=== PATIENT | male | born 1950 | race Caucasian/White ===

== ENCOUNTER 2018-01-26 10:01 | Inpatient (IN) | payer MEDICARE, OTHER ==
--- NOTE | 2018-02-08 17:03 | GHP ---
[f rep st] PREOP HISTORY AND PHYSICAL DATE OF ADMISSION: 02/09/2018 CHIEF COMPLAINT: Left ankle pain. HISTORY OF PRESENT ILLNESS: Patient is a 67-year-old with a history of progressive left ankle pain f ollowing a twisting injury. His pain is worse with activity. He is limiting his activities. MEDICINES: Include allopurinol, amlodipine, enalapril, meloxicam, metformin, metoprolol. ALLERGIES: He lists no known drug allergies. SOCIAL HISTORY: Negative for tobacco use. PAST MEDICAL HISTORY: Positive for asthma, diabetes, and gout. PAST SURGICAL HISTORY: Positive for previous orthopedic surgery. PHYSICAL EXAMINATION: GENERAL: He is alert and oriented x3, in no acute distress. HEAD: Normoceph alic. EYES: Pupils equal, round, reactive to light. Extraocular movements intact. NECK: Supple. No JVD or lymphadenopathy. CHEST: Clear to auscultation. HEART: Regular rate and rhythm. No mur murs or gallops. ABDOMEN: Soft, nontender, nondistended. GENITAL, RECTAL, AND BREASTS: Deferred. EXTREMITY: Reveals mild swelling and tenderness along his anterior ankle. There is tenderness erna g his peroneal tendons with subluxation with dorsiflexion and eversion. ASSESSMENT: 1. Left ankle osteoarthritis. 2. Dislocating left peroneal tendons. 3. Left gastrocnemius contracture. PLAN: Patient is scheduled to undergo left total ankle arthroplasty, reconstruction of his peroneal tendons, and gastroc recession. /[id number]/MODL
[2018-02-09] MEDS ORDERED: BUPIVACAINE 0.5% 30 ML SDV ONE ×3 (07:55→13:29)
[2018-02-09] MEDS ORDERED: ceFAZolin 2 GM/DEXTROSE 100 ML IV ONE (13:10)
[2018-02-09] MEDS ORDERED: LR 1,000 ML IV ONE (13:11)
[2018-02-09] MEDS ORDERED: fentaNYL 100 MCG/2 ML INJ IVP ONE (13:27)
--- NOTE | 2018-02-09 13:27 | PDANEPAE ---
ANE History of Present Illness 67 yo male with work related injury to L ankle. ANE Past Medical History - Cardiovascular History Hx Hypertension: Yes Hx Arrhythmias: No Hx Chest Pain: No Hx Coronary Artery / Peripheral Vascular Disease: No Hx CHF / Valvular Disease: No Hx Palpitations: No - Pulmonary History Hx COPD: No Hx Asthma/Reactive Airway Disease: Yes Hx Recent Upper Respiratory Infection: No Hx Oxygen in Use at Home: No Hx Sleep Apnea: No Sleep Apnea Screening Result - Last Documented: Positive Pulmonary History Comment: USES INHALER, no ER visits for RAD - Neurologic History Hx Cerebrovascular Accident: No Hx Seizures: No Hx Dementia: No - Endocrine History Hx Diabetes: Yes Hypothyroid: No Hyperthyroid: No Obesity: moderate Endocrine History Comment: PRE DIABETIC - Renal History Hx Renal Disorders: No - Liver History Hx Hepatic Disorders: No - Neurological & Psychiatric Hx Hx Neurological and Psychiatric Disorders: No - Cancer History Hx Cancer: No - Congenital Disorder History Hx Congenital Disorders: No - GI History Hx Gastrointestinal Disorders: No - Other Health History Other Health History: NONE - Chronic Pain History Chronic Pain: No - Surgical History Prior Surgeries: NONE ANE Review of Systems Review of Systems: - Exercise capacity METS (RN): 4 METS - Systems Constitutional: Reports: no symptoms Cardiac: Reports: no symptoms Respiratory: Reports: no symptoms ANE Patient History - Allergies Allergies/Adverse Reactions: No Known Allergies Allergy (Verified 01/01/18 09:25) - Home Medications Home Medications: Albuterol [Proventil Inhaler HFA (*)] 1 - 2 puffs IH Q4H PRN 01/01/18 [Last Taken Unknown] Allopurinol [Allopurinol 300 MG (RX)] 300 mg PO BID 01/01/18 [Last Taken Unknown ] Enalapril Maleate [Vasotec 20 MG (*)] 20 mg PO BID 01/01/18 [Last Taken Unknown] Meloxicam [Mobic 15 mg] 7.5 mg PO DAILY 01/01/18 [Last Taken Unknown] Metoprolol Tartrate [Lopressor 100 mg (*)] 100 mg PO DAILY 01/01/18 [Last Taken Unknown] amLODIPine BESYLATE [Norvasc 10 mg (*)] 10 mg PO DAILY 01/01/18 [Last Taken Unknown] metFORMIN SR [Glucophage XR 500 mg (*)] 500 mg PO DAILY 01/01/18 [Last Taken Unknown] - NPO status NPO Since - Liquids (Date): 02/09/18 NPO Since - Liquids (Time): 08:00 - Anes Hx Anes Hx: no prior problems - Smoking Hx Smoking Status: Former smoker - Family Anes Hx Family Anes Hx: neg - N/A Family Hx Anesthesia Complications: NONE ANE Labs/Vital Signs - Vital Signs Vital Signs: reviewed preoperatively; see RN documention for details Height: 177.8 cm Weight: 108.862 kg ANE Physical Exam - Airway Neck exam: FROM Mallampati Score: Class 2 Mouth exam: normal dental/mouth exam - Pulmonary Pulmonary: clear to auscultation - Cardiovascular Cardiovascular: regular rate and rhythym - ASA Status ASA Status: III ANE Anesthesia Plan Anesthesia Plan: GA w LMA [facility] Anesthesia: single shot NB (adductor canal femoral nerve block), continuous NB (lateral popliteal sciatic nerve block)
[2018-02-09] MEDS ORDERED: fentaNYL 100 MCG/2 ML INJ ONE ×2 (13:29→14:33)
[2018-02-09] MEDS ORDERED: ceFAZolin 2 GM/SWFI 2 GM/20 ML SYR IVP ONE (14:00)
[2018-02-09] MEDS ORDERED: POLYETHYLENE GLYCOL 3350 17 GM PKT PO PRN (14:17)
[2018-02-09] MEDS ORDERED: NALOXONE HCL 0.4 MG/ML INJ IVP PRN ×2 (14:17→14:25)
[2018-02-09] MEDS ORDERED: LACTULOSE 20 GM/30 ML UDCUP PO PRN (14:17)
[2018-02-09] MEDS ORDERED: MAGNESIUM HYDROXIDE 30 ML UDCUP PO PRN (14:17)
[2018-02-09] MEDS ORDERED: ONDANSETRON 4 MG/2 ML VIAL IVP PRN ×2 (14:17→14:25)
[2018-02-09] MEDS ORDERED: BISACODYL 10 MG SUPP PR PRN (14:17)
[2018-02-09] MEDS ORDERED: morphINE PCA 30 MG/30 ML PCA IV PRN (14:17)
[2018-02-09] MEDS ORDERED: diphenhydrAMINE 25 MG CAP PO PRN (14:17)
--- NOTE | 2018-02-09 14:17 | POSTOPPROG ---
Post Op Note Date of Operation: 02/09/18 Surgeon: Jun Spaulding Gaming Table Operator: Alberto CASTRO Anesthesia: GET(General Endotracheal) Pre-op Diagnosis: L Ankle arthrosis. L Gastroc contracture, L Dislocated peroneal tendons Post-op Diagnosis: Same Procedure: L TAA, L Gastroc recession, Repair dislocated L peroneal tendons with fibul Inf/Abcess present in the surg proc area at time of surgery?: No EBL: Minimal
[2018-02-09] MEDS ORDERED: ALBUTEROL 60 PUFFS/8 GM MDI IH PRN (14:23)
[2018-02-09] MEDS ORDERED: PROMETHAZINE HCL 25 MG/ML INJ IVP PRN (14:25)
[2018-02-09] MEDS ORDERED: ACETAMINOPHEN 500 MG TAB PO PRN (14:25)
[2018-02-09] MEDS ORDERED: fentaNYL 100 MCG/2 ML INJ IVP PRN (14:25)
[2018-02-09] MEDS ORDERED: MIDAZOLAM 2 MG/2 ML VIAL IVP ONE (14:25)
[2018-02-09] MEDS ORDERED: HYDROCODONE/APAP 5/325 TAB PO PRN (14:25)
[2018-02-09] MEDS ORDERED: oxyCODONE IR 5 MG TAB PO PRN (14:25)
[2018-02-09] MEDS ORDERED: LR 500 ML IV PRN (14:25)
[2018-02-09] MEDS ORDERED: epHEDrine SULFATE 10 MG/ML SYR IVP PRN (14:25)
[2018-02-09] MEDS ORDERED: PHENYLEPHRINE HCL 100 MCG/ML SYR IVP PRN (14:25)
[2018-02-09] MEDS ORDERED: ALBUTEROL 3 ML DEYVIAL IH PRN (14:25)
--- NOTE | 2018-02-09 14:26 | SOAPPROG ---
SOAP Progress Note Assessment/Plan: Assessment: 67 yo male for L ankle surgery. U/S guided L lateral popliteal sciatic nerve block catheter: Sterile prep and drape. 18 G 83 mm Pajunk indwelling block needle advanced in plane to sciatic nerve. Confirmed with plantar flexion response at 0.5 mA. Catheter secured in place. 2 mL aliquots of 0.5 % bupivacaine injected with negative heme/ paresthesia between injections, total of 15 mL. U/S guided L single shot adductor canal block attempted: Sterile prep. 100mm 21 G Pajunk inserted in plane. Canal 6 cm deep. Unable to visualize needle after insertion about 4 cm. Did not feel comfortable inserting the needle blindly. Attempt abandoned. Dr. Spaulding aware. Pt VSS throughout. See RN sheet for vitals. 100 mcg Fentanyl total given for sedation during block placement. Plan: 02/09/18 14:22 Objective: Vital Signs Temp Pulse Resp BP Pulse Ox 36.7 C 76 18 152/82 H 95 02/09/18 13:18 02/09/18 13:18 02/09/18 13:18 02/09/18 13:18 02/09/18 13:18 ICD10 Worksheet Patient Problems: Problems Problem Status Onset Surgery, elective Acute - ICD10 Problem Qualifiers (1) Surgery, elective
[2018-02-09] MEDS ORDERED: MIDAZOLAM 2 MG/2 ML VIAL ONE (14:27)
[2018-02-09] MEDS ORDERED: D5W 1/2 NS W/ 20 KCl/L 1,000 ML IV SCH (14:30)
[2018-02-09] MEDS ORDERED: PROPOFOL 200 MG/20 ML VIAL ONE (14:33)
[2018-02-09] MEDS ORDERED: DEXAMETHASONE 4 MG/ML VIAL ONE (14:34)
[2018-02-09] MEDS ORDERED: LIDOCAINE 2% 5 ML SDV ONE ×3 (14:34→15:08)
[2018-02-09] MEDS ORDERED: ONDANSETRON 4 MG/2 ML VIAL ONE (14:34)
[2018-02-09] MEDS ORDERED: ROCURONIUM 50 MG/5 ML VIAL ONE (14:34)
[2018-02-09] MEDS ORDERED: PHENYLEPHRINE HCL 100 MCG/ML SYR ONE (14:40)
[2018-02-09] MEDS ORDERED: CALCIUM CHLORIDE 1 GM/10 ML INJ ONE (15:05)
[2018-02-09] MEDS ORDERED: THROMBIN (BOVINE) 5,000 UNIT VIAL TP ONE (15:05)
[2018-02-09] MEDS ORDERED: PROPOFOL/EMULSION 500 MG/50 ML BOTTLE IV ONE (15:16)
[2018-02-09] MEDS ORDERED: REMIFENTANIL HCL 1 MG VIAL ONE (15:16)
[2018-02-09] MEDS ORDERED: BUPIVACAINE 0.25% 550 ML in PUMP SET 1 EA NB SCH (17:00)
--- NOTE | 2018-02-09 17:10 | POSTANESTH ---
Post Anesthetic Evaluation Cardiovascular Status: Normal, Stable Respiratory Status: Tx Decrease in SpO2 Level of Consciousness/Mental Status: Can Participate in Eval Pain Control: Adequate, Prn Tx Ordered Nausea/Vomiting Control: Adequate, Prn Tx Ordered Complications Possibly Related to Anesthesia: None Noted
[2018-02-09] MEDS ORDERED: KETOROLAC 15 MG/1 ML SDV IVP ONE (17:11)
[2018-02-09] MEDS ORDERED: KETOROLAC 15 MG/1 ML SDV ONE (17:58)
[2018-02-09] MEDS: oxyCODONE IR 5 MG TAB PO PRN (21:30)
[2018-02-09] MEDS: SENNOSIDES/DOCUSATE SODIUM TAB PO SCH (21:31)
[2018-02-09] MEDS: ceFAZolin 2 GM/SWFI 2 GM/20 ML SYR IVP SCH (21:31)
[2018-02-09] MEDS: ALLOPURINOL 300 MG TAB PO SCH (21:31)
[2018-02-09] MEDS: ENALAPRIL MALEATE 20 MG TAB PO SCH (21:31)
[2018-02-09] MEDS ORDERED: ceFAZolin 2 GM/DEXTROSE 100 ML IV SCH (22:00)
--- NOTE | 2018-02-10 05:06 | GOP ---
[f rep st] OPERATIVE REPORT DATE OF OPERATION: 02/09/18 SURGEON: Jun Spaulding MD ASSISTING: Whit Dominguez PA-C ANESTHESIA: General plus indwelling popliteal nerve block performed by the anesthesiologist at my request for postoperative pain management. PREOPERATIVE DIAGNOSIS: 1. Left ankle arthrosis. 2. Subluxating left peroneal tendons. 3. Left gastrocnemius contracture. POSTOPERATIVE DIAGNOSIS: 1. Left ankle arthrosis. 2. Subluxating left peroneal tendons. 3. Left gastrocnemius contracture. PROCEDURE PERFORMED: 1. Left implant total ankle arthroplasty. 2. Reconstruction left subluxating peroneal tendons. 3. Left gastrocnemius recession. 4. Intraoperative use of fluoroscopy. FINDINGS: ESTIMATED BLOOD LOSS: Minimal. INDICATIONS: The patient is a 67-year-old with history of progressive left ankle pain following a twisting injury. Clinically and radiographically, he is noted to have advanced ankle arthrosis and subluxating peroneal tendons. The patient has persistence of symptoms refractory to nonoperative treatment. He is interested in pursuing operative treatment. From an operative standpoint, treatment options for his advanced arthritis including arthrodesis and total ankle arthroplasty were discussed with anticipated risks and benefits of both. The patient elected to pursue total ankle arthroplasty. He acknowledged he understood the potential risks of the operation, including but not limited to, bleeding, infection, neurovascular damage, limb loss, limited limb function, pain or functional limitations despite operative treatment, implant failure requiring removal and arthrodesis, and anesthetic risks. He acknowledged he understood the potential risks, planned procedure, and postoperative plan well, and had all questions answered prior to surgery. He gave his consent for the operative procedure. DESCRIPTION OF PROCEDURE: The patient was brought to the operating room after an indwelling popliteal block was performed in preop holding by the anesthesiologist at my request for postoperative pain management. He was placed in a supine position, where general anesthetic was administered. A tourniquet was placed on his left thigh, bump underneath the left hip and shoulder, and left lower leg. The lower extremity was prepped and draped in standard sterile fashion. After marking these incisions and Prem wrap exsanguination, tourniquet was inflated to 250. Attention was initially directed toward the gastroc recession. A longitudinal incision was made along the medial aspect of the lower leg at the level of the mid substance of the gastroc. Skin and subcutaneous tissue were sharply incised. Sharp dissection was carried through the superficial posterior compartment fascia in line with the skin incision. The interval between the gastroc and soleus was bluntly dissected. Utilizing a speculum for retraction, the anterior tendon, the gastroc was transversely incised. Favorable dorsiflexion was achieved. The subcutaneous tissue was closed with 3-0 Vicryl suture in interrupted fashion. The skin was closed with 4-0 nylon interrupted sutures. An anterior approach to the ankle was utilized for exposure. Skin and subcutaneous tissue were sharply incised. The extensor retinaculum was incised in line with the skin incision. The interval between the tibialis anterior and extensor hallucis longus was utilized for exposure. Care was taken to avoid damage to neurovascular bundle. The ankle capsule was longitudinally incised and reflected medially and laterally. Chisel was utilized to remove prominent osteophytes about the anterior aspect of the distal tibia. The cutting jig for the Integra pascual total ankle was applied and provisionally positioned. Provisional pinning was performed. Cutting jig position was corrected for superior and inferior translation, varus valgus, procurvatum and recurvatum and rotation, and confirmed fluoroscopically. The jig was pinned into place. After protecting the medial and lateral gutters, a saw was utilized to make the transverse tibial cut with drill holes used along the medial gutter cut, followed by reciprocating saw. The cut bone surfaces were removed with the rongeur after morselizing them somewhat based on their adherence to their posterior capsule. The talar dome cutting guide was applied, and after distracting both medially and laterally and holding the ankle in a neutral dorsiflexed position, pinned into place. The talar dome cut was then applied. The posterior and anterior chamfer cutting guide was then applied and pinned into place after confirming proper position fluoroscopically. The posterior chamfer cut was made with a saw. The anterior chamfer cut was then placed, and utilizing the Milling device the anterior chamfer cut was performed. The taler peg guide was then applied and peg holes were made. This was a size 2 talar cutting guide based on intraoperative observation. A size 2 talar component with a 3X tibial component and 6 mm polyethylene trial was placed and found to have excellent fit and stability, both clinically and fluoroscopically. The tibial keel holes were then made through the trial. After copiously irrigating the wound and removing any loose piece of bone, the definitive implants were applied. The tibial and talar implants were coated with PRP. The tibial implant was initially impacted into place and position confirmed fluoroscopically. Protecting the tibial implant with a plastic "tongue" piece, size 2 talar implant was impacted in place. 6 mm polyethylene was inserted with excellent fit and range of motion. Fluoroscopic views confirmed favorable implant positioning. Attention was directed toward closure. The extensor retinaculum was closed with 2-0 Vicryl suture in interrupted fashion, subcutaneous tissue closed with 3 -0 Vicryl suture in interrupted fashion, the skin closed with 4-0 nylon interrupted vertical mattress sutures. Attention was then directed toward the peroneal tendons. A longitudinal incision was made along the posterior border of the distal fibula. Skin and subcutaneous tissue were sharply incised. Sharp dissection was carried through the peroneal retinaculum. There was noted to be subluxation of the tendons without any significant wear. The posterior fibular groove was felt to be adequate, precluding the need for groove deepening. Drill holes were placed in the distal fibula to allow for advancement of the peroneal retinaculum. Utilizing 0 PDS suture, the peroneal retinaculum was advanced into place into a tightened position. The tissue overlying the peroneal tendons was closed with 2 -0 Vicryl suture in interrupted fashion, subcutaneous tissue closed with 3-0 Vicryl suture in interrupted fashion, skin closed with 4-0 nylon interrupted sutures. The wounds were dressed with sterile Adaptic, 4x4, and Webril, and leg was placed in a below-knee splint. The patient tolerated the procedure well and was taken to the recovery room, extubated, in stable condition postoperatively. All sponge, needle, and instrument counts were reported as being correct. DRAINS: None. COMPLICATIONS: None. PLAN: The patient will be admitted for overnight observation. He will be nonweightbearing on his operative extremity. /[id number]/MODL MTDD
[2018-02-10 05:07] VITALS: RESP 16
[2018-02-10] MEDS: ceFAZolin 2 GM/SWFI 2 GM/20 ML SYR IVP SCH (05:33)
--- NOTE | 2018-02-10 05:43 | SOAPPROG ---
SOAP Progress Note Assessment/Plan: Assessment: S/P L TAA Pain well controlled +U/O Orlin po Splint intact Mod sang D/C Toes with + sensation Good cap refill Plan: OOB/PT D/C Home 02/10/18 05:41 Objective: Vital Signs Temp Pulse Resp BP Pulse Ox 37.3 C 69 16 118/73 91 L 02/10/18 04:45 02/10/18 04:45 02/10/18 04:45 02/10/18 04:45 02/10/18 04:45 02/08/18 02/09/18 02/10/18 05:59 05:59 05:59 Intake Total 600 Output Total 600 Balance 0 ICD10 Worksheet Patient Problems: Problems Problem Status Onset Surgery, elective Acute
[2018-02-10] MEDS: SENNOSIDES/DOCUSATE SODIUM TAB PO SCH (07:48)
[2018-02-10] MEDS: ALLOPURINOL 300 MG TAB PO SCH (07:48)
[2018-02-10] MEDS: ENALAPRIL MALEATE 20 MG TAB PO SCH (08:05)
[2018-02-10] MEDS ORDERED: metFORMIN SR 500 MG TAB PO SCH (09:00)
[2018-02-10] MEDS ORDERED: METOPROLOL TARTRATE 100 MG TAB PO SCH (09:00)
[2018-02-10] MEDS ORDERED: ENOXAPARIN 40 MG/0.4 ML SYR SC SCH (09:00)
[2018-02-10 11:32] VITALS: BP 103/68; PULSE 59; TEMP 99
[2018-02-10] MEDS: oxyCODONE IR 5 MG TAB PO PRN (11:49)
--- NOTE | 2018-02-10 11:57 | PDMN ---
Medical Necessity Medical necessity: GRG musculoskeletal sgy: [id number] INPT only sgy: TAA with implant: 65+ male- L TAA with implant, reconstruction L subluxating peroneal tendons, L gastrocnemius recession , fluroscopy
[2018-02-10 12:12] VITALS: O2SAT 95
--- NOTE | 2018-02-10 14:30 | ASMTCMCOM ---
CM Note CM Note Notes: Pt medically stable for d/c. PT recchome/outpatient, OT rec home. No CM d/c needs identified. Date Signed: 02/10/2018 02:30 PM Electronically Signed By:JOJO Ramos
--- NOTE | 2018-02-11 20:18 | SOAPPROG ---
SOAP Progress Note Assessment/Plan: Assessment: 67 yo male for L ankle surgery s/p indwelling catheter for sciatic nerve post- op pain. Interview via telephone: Pt had pain yesterday necessitating increasing the infusion rate. He finally got on top of the pain in the evening. Today the ankle is feeling much better, but the infusion did run out. Pt removed all dressings and the catheter slid out easily with no resistance. 02/09/18 14:22 02/11/18 20:16 Objective: Vital Signs Temp Pulse Resp BP Pulse Ox 37.2 C 59 L 16 103/68 95 02/10/18 11:30 02/10/18 11:30 02/10/18 11:30 02/10/18 11:30 02/10/18 12:11 02/10/18 02/11/18 02/12/18 05:59 05:59 05:59 Intake Total 600 Output Total 600 Balance 0 ICD10 Worksheet Patient Problems: Problems Problem Status Onset Arthrosis of left ankle Acute Surgery, elective Acute - ICD10 Problem Qualifiers (1) Surgery, elective
== END 2018-02-10 12:34 | disposition home or self-care (01) | DRG 469 ==
LOC: F3N 02-09 12:41
PROVIDERS: ADMIT Orthopaedic Surgery Foot and Ankle Surgery; ATTEND Orthopaedic Surgery Foot and Ankle Surgery
PROC: 0KS Muscles, Reposition (ICD-10-PCS; principal; 2018-02-09 14:15)
PROC: 0LQT0ZZ Repair Left Ankle Tendon, Open Approach (ICD-10-PCS; principal; 2018-02-09 14:15)
PROC: 0SRG0JA Replacement of Left Ankle Joint with Synthetic Substitute, Uncemented, Open Approach (ICD-10-PCS; principal; 2018-02-09 14:15)
DX: M19.072 Primary osteoarthritis, left ankle and foot (principal); S93.492A Sprain of other ligament of left ankle, initial encounter; X50.9XXA Other and unspecified overexertion or strenuous movements or postures, initial encounter; M62.462 Contracture of muscle, left lower leg
CPT/HCPCS: 97161-GP; G8978-GP-CI; G8979-GP-CI; G8980-GP-CI; J0690; J1100; J1650; J1885; J2250; J2370; J2405; J2704; J3010